=== PATIENT | female | born 1945 | race Caucasian/White ===

== ENCOUNTER 2018-04-18 06:00 | Day surgery (SDC) | payer MEDICARE ==
[2018-04-18 06:16] VITALS: RESP 16
[2018-04-18] MEDS ORDERED: BUPIVACAINE/EPI 0.5% 10 ML SOL INFIL ONE (06:41)
[2018-04-18] MEDS ORDERED: BUPIVACAINE HCL 0.5% MPF 10 ML SOL ONE (06:45)
[2018-04-18] MEDS ORDERED: PROPOFOL 500 MG/50 ML EMU IV ONE (06:52)
[2018-04-18] MEDS ORDERED: MIDAZOLAM 2 MG/2 ML SOL ONE (06:53)
[2018-04-18] MEDS ORDERED: FENTANYL 100MCG/2ML SOL ONE (06:53)
[2018-04-18] MEDS ORDERED: METOCLOPRAMIDE HYDROCHLORIDE 5 MG/ML SOL ONE (07:42)
[2018-04-18] MEDS ORDERED: ONDANSETRON HCL 4 MG/2 ML SOL ONE (07:42)
[2018-04-18] MEDS ORDERED: KETAMINE HYDROCHLORIDE 50 MG/ML SOL ONE (07:49)
[2018-04-18] MEDS ORDERED: PROPOFOL 10 MG/ML 200 MG/20 ML EMU IV ONE (08:38)
[2018-04-18 11:35] VITALS: BP 153/75; PULSE 90; TEMP 97; O2SAT 92
== END 2018-04-18 12:00 | disposition home or self-care (01) | DRG 563 ==
LOC: SURG 06:00
PROVIDERS: ATTEND Orthopaedic Surgery
DX: S52.531A Colles' fracture of right radius, initial encounter for closed fracture (principal)
CPT/HCPCS: 73100; 76000; J2250; J2405; J2765; J3010; A6402; J2704; J3490

== ENCOUNTER 2018-05-15 09:06 | Outpatient (CLI) | payer MEDICARE ==
[2018-04-18 11:35] VITALS: O2SAT 92
== END 2018-05-15 09:07 | disposition home or self-care (01) | DRG 561 ==
LOC: CONVCARE 09:06
PROVIDERS: ATTEND Orthopaedic Surgery
DX: Z47.89 Encounter for other orthopedic aftercare (principal); S52.501D Unspecified fracture of the lower end of right radius, subsequent encounter for closed fracture with routine healing
CPT/HCPCS: 73110

== ENCOUNTER 2018-06-12 10:49 | Outpatient (CLI) | payer MEDICARE ==
[2018-04-18 11:35] VITALS: O2SAT 92
== END 2018-06-12 10:50 | disposition home or self-care (01) | DRG 561 ==
LOC: CONVCARE 10:49
PROVIDERS: ATTEND Orthopaedic Surgery
DX: Z47.89 Encounter for other orthopedic aftercare (principal); Z98.890 Other specified postprocedural states
CPT/HCPCS: 73100